=== PATIENT | female | born 2005 | race Caucasian/White ===

== ENCOUNTER 2025-08-01 20:59 | Emergency (ER) | payer SELFPAY ==
[2025-08-01 21:03] VITALS: BP 126/79; PULSE 98; RESP 16; TEMP 36.6; O2SAT 100
--- NOTE | 2025-08-01 22:20 | ED_ITS ---
HPI - Ear Problem General Chief complaint: Ear Stated complaint: sinus/ear infection Time Seen by Provider: 08/01/25 21:41 Source: patient Mode of arrival: ambulatory Limitations: no limitations History of Present Illness HPI Narrative: This is a 20-year-old female that presents emergency department for cold symptoms. Ongoing over the last week. Reports fevers, sinus congestion, right ear pain. Review of Systems Review of Systems: All systems reviewed & are unremarkable except as noted in HPI and below Exam Narrative: GENERAL: Well-appearing, well-nourished, and in no acute distress. HEAD: Normocephalic, atraumatic. EYES: EOMI. ENT: Nares clear, no rhinorrhea or epistaxis. Mucous membranes moist. Oropharynx without tonsillar hypertrophy exudate or other lesions. Left TM pearly baez non- bulging; right TM bulging, erythematous NECK: Supple. No adenopathy or masses. CHEST: Clear to auscultation. No respiratory distress. No wheezes rales or rhonchi HEART: Regular rate and rhythm. No murmur heard. Normal peripheral pulses. EXTREMITIES: Normal range of motion. No edema. SKIN: Warm, dry, no rash. NEURO: No focal deficits. Alert and oriented x3. PSYCH: Normal mood and affect Course Vital Signs Vital signs: Vital Signs Temperature 97.9 F 08/01/25 21:03 Pulse Rate 98 08/01/25 21:03 Respiratory Rate 16 08/01/25 21:03 Blood Pressure 126/79 08/01/25 21:03 Pulse Oximetry 100 08/01/25 21:03 Oxygen Delivery Room Air 08/01/25 21:03 Temperature 97.9 F 08/01/25 21:03 Pulse Rate 98 08/01/25 21:03 Respiratory Rate 16 08/01/25 21:03 Blood Pressure 126/79 08/01/25 21:03 Pulse Oximetry 100 08/01/25 21:03 Oxygen Delivery Room Air 08/01/25 21:03 MDM MDM Narrative Medical decision making narrative: Patient presents to the emergency department for congestion, ear pain. She is afebrile and nontoxic appearing. Evidence of otitis media on the right. Will be started on oral antibiotics. Given follow-up with ENT Differential Diagnosis Differential Diagnosis: Sinusitis, otitis media, viral syndrome, upper respiratory infection Critical Care Time Critical Care Time Critical Care Time: No Discharge Plan Discharge Clinical Impression: Otitis media Qualifiers: Otitis media type: unspecified Chronicity: acute Qualified Code(s): H66.90 - Otitis media, unspecified, unspecified ear Patient Disposition: Home Condition: Stable Instructions: Antibiotic Form, Ear Infection (GEN) Additional Instructions: Return to the emergency department for worsening symptoms, or any other concerns Remain well-hydrated, get plenty of rest. Take Tylenol or Motrin [id number] for pain as needed. Flonase for nasal congestion. Zyrtec for runny nose. Take oral antibiotic as prescribed Follow up with ENT Patient Language: Irish Prescriptions: New amoxicillin-pot clavulanate 875-125 mg tablet 1 tablet PO Q12H 7 Days Qty: 14 0RF Follow-up/Referrals: Eh Small MD [Physician, Ear, Nose, Throat] PHYSICIAN,[employer] [Primary Care Provider, Internal Medicine] Stand Alone Forms: Work/School Release IP
== END 2025-08-01 22:44 | disposition home or self-care (01) ==
LOC: ANHED 22:32
PROVIDERS: Emergency Provider Physician Assistant
DX: H66.91 Otitis media, unspecified, right ear (principal)
CPT/HCPCS: 99283